=== PATIENT | male | born 1995 | race Caucasian/White ===

== ENCOUNTER 2022-11-15 20:51 | Emergency (ER) | payer SELFPAY ==
[~2022-11-15] VITALS: Ht 165.1 cm; Wt 74.8 kg
--- NOTE | 2022-11-15 21:00 | NUR ---
DR. FRITZ AT BEDSIDE
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
[2022-11-15 21:01] VITALS: BP 125/78
[2022-11-15] MEDS ORDERED: predniSONE 20 MG TABLET ONE (21:04)
[2022-11-15] MEDS ORDERED: ALBUTEROL FS 2.5 MG/3 ML VIAL.NEB ONE (21:23)
--- NOTE | 2022-11-15 21:24 | NUR ---
RT AT BEDSIDE FOR BREATHING TREATMENT
[2022-11-15] MEDS ORDERED: ALBUTEROL FS 2.5 MG/3 ML VIAL.NEB NEB ONE (21:30)
[2022-11-15] MEDS ORDERED: predniSONE 20 MG TABLET PO ONE (21:30)
[2022-11-15] MEDS ORDERED: ALBU8.5H8 INH (21:42)
[2022-11-15] MEDS ORDERED: PRED50TA PO (21:42)
== END 2022-11-15 22:00 | disposition home or self-care (01) ==
LOC: ER 20:55
DX: J45.909 Unspecified asthma, uncomplicated (principal)
CPT/HCPCS: 99283; 94640 ×2; J7512